=== PATIENT | male | born 1940 | race Caucasian/White ===

== ENCOUNTER 2016-07-26 11:39 | Emergency (ER) | payer OTHER ==
[~2016-07-26] VITALS: Ht 162.6 cm; Wt 76.7 kg
[2016-07-26 11:53] VITALS: BP 141/75
--- NOTE | 2016-07-26 13:10 | NUR ---
Patient to bed 08.
--- NOTE | 2016-07-26 13:12 | NUR ---
76/M BIB C/O COUGH AND CONGESTION X5 DAYS. LUNG SOUNDS CLR. ERMD MADE AWARE.
--- NOTE | 2016-07-26 13:12 | NUR ---
Dr. Patel evaluating patient at bedside.
[2016-07-26] MEDS ORDERED: ACETAMIN/CODEINE 120/12MG-5ML 5 ML UDC PO ONE (13:30)
--- NOTE | 2016-07-26 13:45 | NUR ---
XR NEGATIVE. MED GIVEN PER JUN. PT LONI WELL. SWABBED NOSTRILS FOR FLU TEST.
--- NOTE | 2016-07-26 15:04 | NUR ---
Patient discharged with v/s stable. Written and verbal after care instructions given and explained. Patient verbalized understanding. Ambulatory with steady gait. All questions addressed prior to discharge. Advised to follow up with PMD.
[2016-07-26 15:07] VITALS: BP 132/78
== END 2016-07-26 15:04 | disposition home or self-care (01) ==
LOC: MED 11:39
DX: B34.9 Viral infection, unspecified (principal)
CPT/HCPCS: 36415; 71010; 87804; 99284

== ENCOUNTER 2018-11-23 15:16 | Emergency (ER) | payer OTHER ==
[~2018-11-23] VITALS: Ht 162.6 cm; Wt 71.7 kg
[2018-11-23 15:25] VITALS: BP 148/56
--- NOTE | 2018-11-23 15:25 | NUR ---
Patient ambulated to bed 3. RN evaluating patient at bedside.
--- NOTE | 2018-11-23 15:25 | NUR ---
BIB SELF. AAO X4 C/O BILATERAL EAR MUFFLEDNESS. PT RETURNED FROM [facility] 3 DAYS AGO AND STATES THAT DURING THE CAR RIDE HOME HIS EARS CLOGGED AND STATES THAT HE IS HAVING DIFFICULTY HEARING. PT STATES THAT HE HAD THIS PROBLEM BEFORE AND AND HAD HIS EARS IRRIGATED. PT HAS STEADY GAIT, DENIES DIZZINESS. ER TO EVALUATE PT.
--- NOTE | 2018-11-23 15:40 | NUR ---
ASSISTED DR ANGLIN FOR BILATERAL EAR CLEANING. PT TOLERATED WELL
--- NOTE | 2018-11-23 15:50 | NUR ---
EMT AT BEDSIDE FOR PT EAR IRRIGATION PER DR ANGLIN. PT TOLERATING WELL
[2018-11-23 16:27] VITALS: BP 142/62
== END 2018-11-23 16:27 | disposition home or self-care (01) ==
LOC: MED 15:16
DX: H61.20 Impacted cerumen, unspecified ear (principal)
CPT/HCPCS: 99282

== ENCOUNTER 2020-01-04 07:14 | Emergency (ER) | payer OTHER ==
[~2020-01-04] VITALS: Ht 162.6 cm; Wt 74.8 kg
[2020-01-04 07:16] VITALS: BP 136/68
--- NOTE | 2020-01-04 07:25 | NUR ---
PATIENT AMBULATED TO BED 11.
--- NOTE | 2020-01-04 07:27 | NUR ---
79 YO TAMAZ[place] SPEAKING MALE C/O HEARING LOSS X 22 DAYS. DENIES TRAUMA. MED HX: DENIES
[2020-01-04 07:36] VITALS: BP 136/68
--- NOTE | 2020-01-04 07:36 | NUR ---
Patient discharged with v/s stable. Written and verbal after care instructions given and explained. Patient alert, oriented and verbalized understanding of instructions. Ambulatory with steady gait. All questions addressed prior to discharge. ID band removed. Patient advised to follow up with PMD. Rx of CORTISPORIN OTIC given. Patient educated on indication of medication including possible reaction and side effects. Opportunity to ask questions provided and answered.
== END 2020-01-04 07:36 | disposition home or self-care (01) ==
LOC: MED 07:14
DX: H61.22 Impacted cerumen, left ear (principal); R03.0 Elevated blood-pressure reading, without diagnosis of hypertension
CPT/HCPCS: 69210; 99283; 99284

== ENCOUNTER 2020-01-23 13:47 | Emergency (ER) | payer OTHER ==
[~2020-01-23] VITALS: Ht 160 cm; Wt 74.8 kg
[2020-01-23 14:12] VITALS: BP 139/71
[2020-01-23 15:27] VITALS: BP 139/71
== END 2020-01-23 15:26 | disposition home or self-care (01) ==
LOC: MED 13:47
DX: H60.91 Unspecified otitis externa, right ear (principal)
CPT/HCPCS: 99283